=== PATIENT | female | born 1990 | race Two or more races ===

== ENCOUNTER 2024-09-11 08:07 | Inpatient (IN) | payer OTHER ==
[2024-09-11 09:42] LABS: INR 0.96 (0.83-1.09); PROTHROMBIN TIME (PATIENT) 11.1 SEC (9.7-13.0)
[2024-09-11 09:45] LABS: ACTIVATED PTT 31.4 SECONDS (25.2-36.5); BASO % 0.5 % (0-2.0); HEMATOCRIT 39.6 % (32.4-45.2); HEMOGLOBIN 13.5 GM/dL (10.7-15.3); LYMPH % 7.2 % (8-40); MCHC 34.2 g/dl (32.0-36.0); MEAN PLT VOLUME 9.6 fl (7.5-11.1); MONO % 4.4 % (3.8-10.2); NEUT % 85.9 % (42.8-82.8); PLATELET COUNT 187 10^3/uL (134-434); RBC 4.66 M/mm3 (3.60-5.2); RDW 13.8 % (11.6-15.6); WHITE BLOOD COUNT 13.2 K/mm3 (4.0-10.0)
[2024-09-11] MEDS: ELECTROLYTE-148 SOLN 1,000 ML IV SCH ×2 (10:00→14:01)
[2024-09-11 10:01] LABS: CHLORIDE 110 mmol/L (98-107); POTASSIUM 3.9 mmol/L (3.5-5.1); SODIUM 140 mmol/L (136-145)
[2024-09-11 10:05] LABS: ANION GAP 6 mmol/L (4-13); BLOOD UREA NITROGEN 5.4 mg/dL (7-18); CALCIUM 8.9 mg/dL (8.5-10.1); CO2 24 mmol/L (21-32); GLUCOSE,RANDOM 77 mg/dL (74-106)
[2024-09-11 10:08] LABS: CREATININE 0.6 mg/dL (0.55-1.3)
[2024-09-11] MEDS ORDERED: OXYTOCIN 30 UNITS in 0.9% NS 30 UNIT/500 ML INFUS.BAG IVPB SCH (10:30)
[2024-09-11] MEDS ORDERED: OXYTOCIN 20 UNITS in 0.9% NS 20 UNIT/1,000 ML INFUS.BAG IV ONE (12:00)
[2024-09-11] MEDS ORDERED: LIDOCAINE HCL 1% PRESERVATIVE FREE - 30ML VIAL ONE (12:00)
[2024-09-11] MEDS: OXYTOCIN 20 UNITS in 0.9% NS 20 UNIT/1,000 ML INFUS.BAG IV SCH (12:10)
[2024-09-11 12:13] LABS: HIV INTERPRETATION NEGATIVE (NEGATIVE)
[2024-09-11 12:45] VITALS: BMI 25.0
[2024-09-11] MEDS: METHYLERGONOVINE MALEATE 0.2 MG/1 ML AMP IM PRN (13:55)
[2024-09-11] MEDS ORDERED: BENZOCAINE 28 GM HEMORRHOIDAL OINTMENT TP PRN (15:40)
[2024-09-11] MEDS ORDERED: oxyCODONE HCL 5 MG TABLET PO PRN (15:40)
[2024-09-11] MEDS ORDERED: BISACODYL 10 MG SUPP.RECT RC PRN (15:40)
[2024-09-11] MEDS ORDERED: WITCH HAZEL 50% (TUCKS) 40 PAD/JAR PAD TP PRN (15:40)
[2024-09-11] MEDS: BENZOCAINE 20% 57 GM BOTTLE TP PRN (16:03)
[2024-09-11] MEDS: IBUPROFEN 600 MG TABLET (FP) PO PRN (16:03)
[2024-09-12] MEDS: ACETAMINOPHEN 325 MG TABLET (FP) PO PRN (01:00)
[2024-09-12 08:04] LABS: BASO % 0.4 % (0-2.0); EOS % 1.7 % (0-4.5); HEMATOCRIT 38.1 % (32.4-45.2); HEMOGLOBIN 12.9 GM/dL (10.7-15.3); LYMPH % 8.5 % (8-40); MCH 28.8 pg (25.7-33.7); MCHC 33.8 g/dl (32.0-36.0); MEAN CELL VOLUME 85.1 fl (80-96); MEAN PLT VOLUME 9.8 fl (7.5-11.1); NEUT % 85.4 % (42.8-82.8); PLATELET COUNT 180 10^3/uL (134-434); RBC 4.48 M/mm3 (3.60-5.2); RDW 13.8 % (11.6-15.6); WHITE BLOOD COUNT 16.1 K/mm3 (4.0-10.0)
[2024-09-12] MEDS: PRENATAL VITAMINS W/ FOLIC ACID TABLET (FP) PO SCH (10:53)
[2024-09-12] MEDS ORDERED: SENNOSIDES/DOCUSATE COMBO (SENNA PLUS) TABLET (UD) PO PRN (22:00)
[2024-09-13 09:45] VITALS: BP 94/56; PULSE 69; RESP 17; TEMP 97.6
== END 2024-09-13 13:45 | disposition home or self-care (01) | DRG 807 ==
LOC: JLDR 08:07 → J3W 14:55
PROVIDERS: ADMIT Obstetrics & Gynecology; ATTEND Obstetrics & Gynecology
PROC: 10E0XZZ Delivery of Products of Conception, External Approach (ICD-10-PCS; principal; 2024-09-11)
DX: O60.23X0 Term delivery with preterm labor, third trimester, not applicable or unspecified (principal); Z37.0 Single live birth; O69.81X0 Labor and delivery complicated by cord around neck, without compression, not applicable or unspecified; Z3A.38 38 weeks gestation of pregnancy
CPT/HCPCS: 36415; 59409; 80048; 85025; 85610; 85730; 86780; 86803; 86850; 86900; 86901; 87389